=== PATIENT | female | born 1960 | race Caucasian/White ===

== ENCOUNTER 2017-06-27 09:45 | Day surgery (SDC) | payer OTHER ==
--- NOTE | 2017-06-20 14:11 | HISTORY AND PHYSICAL E ---
History and Physical NAME: TERESA MAC : 1960 AGE: 56Y ADMITTED: 06/27/2017 ROOM: CHIEF COMPLAINT: Patient presented for colon screening. REFERRING: Brendan Johnson SOCIAL HISTORY: Does not smoke. Does not drink. SURGERIES: 1. Appendectomy. 2. Tonsillectomy. 3. Cyst on her back. REVIEW OF SYSTEMS: HEENT: Eyeglasses. RESPIRATORY: Negative. CARDIAC: Denied chest pain. ENDOCRINE: Hypothyroid. GASTROINTESTINAL: Colon screening. ONCOLOGIC/HEMATOLOGIC: Negative. NEUROPSYCHIATRIC: History of depression. FAMILY HISTORY: Father is alive. Mom had diabetes. MEDICATIONS: 1. Fish oil. 2. [place]. PHYSICAL EXAMINATION: GENERAL: Pleasant, alert, oriented, in no acute distress. VITAL SIGNS: Weight 250, blood pressure 140/90, pulse 80, respirations 18, temp is 98. HEENT: Normal. NECK: Supple. LUNGS: Clear. ABDOMEN: Soft. NEUROLOGIC: Negative. CONCLUSION: Colon screening 06/27. DICTATING PHYSICIAN: DINA VELASCO M.D. [id number] PHY#: [id number] ID: [id number] JOB#: [id number] ACCT: [id number] cc:DINA VELASCO M.D. >
[~2017-06-27 09:45] MED LIST: EPINEPHRINE INJ 1 MG/10 ML DISP.SYRIN ONE; FLUMAZENIL INJ 0.5 MG/5 ML VIAL ONE; GLUCAGON,HUMAN RECOMB 1 MG INJ ONE; GLYCOPYRROLATE INJ 0.4 MG/2 ML VIAL ONE; LIDOCAINE 2% JELLY 30 ML TUBE ONE; NALOXONE HCL INJ/PF 0.4 MG/1 ML SDV ONE; ONDANSETRON HCL INJ/PF 4 MG/2 ML SDV ONE
[2017-06-27] MEDS: MIDAZOLAM 2 MG/2 ML INJ ONE ×3 (10:33→10:47)
[2017-06-27] MEDS: FENTANYL CITRATE INJ/PF 100 MCG/2 ML AMPUL ONE ×2 (10:35→10:42)
--- NOTE | 2017-06-27 12:05 | OPERATIVE REPORT E ---
Operative Report NAME: TERESA MAC : 1960 AGE: 56Y DATE OF SURGERY: 06/27/2017 ROOM: PREOPERATIVE DIAGNOSIS: Colon screening. POSTOPERATIVE DIAGNOSES: 1. External hemorrhoids, mild. 2. Sigmoid diverticulosis. 3. Very rare diverticulosis in the ascending colon. PROCEDURE: Colonoscopy to the cecum. SURGEON: DINA VELASCO M.D. ANESTHESIA: Versed 3 mg and Fentanyl 100 mcg. PROCEDURE: Rectal exam - External hemorrhoids, mild. Rectum, sigmoid shows occasional diverticulosis. Sigmoid and descending colon diverticulosis. Transverse colon, ascending colon, cecum normal. Occasional diverticulosis in the ascending colon. Cecum normal, ascending colon normal, transverse, descending, sigmoid all the way to the rectum. CONCLUSIONS: 1. No polyps, no malignancy. 2. Mild diverticulosis, sigmoid and descending colon. 3. Rare diverticulosis in the ascending colon. PLAN: Assurance. Consider follow-up colonoscopy after 10 years. DICTATING PHYSICIAN: DINA VELASCO M.D. [id number] PHY#: [id number] ID: [id number] JOB#: [id number] ACCT: [id number] cc:DINA VELASCO M.D. [facility]IAN'S >
--- NOTE | 2017-06-27 12:06 | DISCHARGE SUMMARY E ---
Discharge Summary NAME: TERESA MAC : 1960 AGE: 56Y ADMITTED: 06/27/2017 DISCHARGED: 06/27/2017 PROCEDURE: Colonoscopy. FINAL DIAGNOSIS: Sigmoid diverticulosis. Occasional diverticulosis, right colon. HISTORY: Patient is 56. Colon screening shows no polyp. Sigmoid diverticulosis. DISCHARGE PLAN: Soft diet. Continue all medication. Consider followup colonoscopy after 10 years. DICTATING PHYSICIAN: DINA VELASCO M.D. [id number] PHY#: [id number] ID: [id number] JOB#: [id number] ACCT: [id number] cc:DINA VELASCO M.D. >
[2017-06-27 12:12] VITALS: BP 116/76
== END 2017-06-27 12:05 | disposition home or self-care (01) ==
LOC: END 09:45
PROVIDERS: ATTEND Specialist
PROC: 0DJD8ZZ Inspection of Lower Intestinal Tract, Via Natural or Artificial Opening Endoscopic (ICD-10-PCS; principal; 2017-06-27 10:00)
DX: Z12.11 Encounter for screening for malignant neoplasm of colon (principal); K57.30 Diverticulosis of large intestine without perforation or abscess without bleeding; K44.9 Diaphragmatic hernia without obstruction or gangrene
CPT/HCPCS: 45378; J2250; J3010; J1610; J2405; J0171; J2310; J3490

== ENCOUNTER → 2018-03-15 | Outpatient (CLI) | payer OTHER ==
[2018-03-15 14:19] LABS: ABSOLUTE BASOPHILS # (AUTO) 0.1 10^3/uL (0.0-0.2); ABSOLUTE EOSINOPHILS # (AUTO) 0.1 10^3/uL (0.0-0.6); ABSOLUTE LYMPHOCYTES (AUTO) 2.6 10^3/uL (0.5-4.7); ABSOLUTE MONOCYTES (AUTO) 0.5 10^3/uL (0.1-1.4); ABSOLUTE NEUT (AUTO) 4.7 10^3/uL (1.7-8.2); BASOPHILS % (AUTO) 0.8 % (0-2); EOSINOPHILS % (AUTO) 1.5 % (0-6); HEMATOCRIT 42.6 % (36.0-47.0); HEMOGLOBIN 14.7 g/dL (12.0-15.5); MEAN CORPUSCULAR HEMOGLOBIN 29.6 pg (27.0-33.4); MEAN CORPUSCULAR HGB CONC 34.4 g/dL (32.0-36.0); MEAN CORPUSCULAR VOLUME 86 fl (80-97); MONOCYTES % (AUTO) 6.2 % (3-13); PLATELET COUNT 301 10^3/uL (150-450); RED BLOOD COUNT 4.95 10^6/uL (3.72-5.28); RED CELL DISTRIBUTION WIDTH 13.6 % (11.5-14.0); SEGMENTED NEUTROPHILS % (AUTO) 58.5 % (42-78); TOTAL CELLS COUNTED % (AUTO) 100 %
[2018-03-15 14:57] LABS: ERYTHROCYTE SEDIMENTATION RATE 22 mm/hr (0-30)
[2018-03-15 15:26] LABS: ALANINE AMINOTRANSFERASE 23 U/L (9-52); ALBUMIN 3.9 g/dL (3.5-5.0); ALKALINE PHOSPHATASE 75 U/L (38-126); ANION GAP 10 (5-19); ASPARTATE AMINO TRANSFERASE 17 U/L (14-36); BILIRUBIN,DIRECT 0.3 mg/dL (0.0-0.4); BILIRUBIN,TOTAL 0.5 mg/dL (0.2-1.3); BLOOD UREA NITROGEN 26 mg/dL (7-20); C-REACTIVE PROTEIN 14.5 mg/L (<10.0); CALCIUM 9.3 mg/dL (8.4-10.2); CARBON DIOXIDE 28 mmol/L (22-30); CHLORIDE 106 mmol/L (98-107); GLUCOSE 107 mg/dL (75-110); SODIUM 144.2 mmol/L (137-145); TOTAL PROTEIN 6.7 g/dL (6.3-8.2)
== END ==
LOC: OD 13:40
PROVIDERS: ATTEND Physician Assistant
DX: M25.50 Pain in unspecified joint (principal); R60.9 Edema, unspecified; M54.6 Pain in thoracic spine
CPT/HCPCS: 36415; 80053; 85025; 85652; 86038; 86140; 86430

== ENCOUNTER → 2018-03-25 | Outpatient (CLI) | payer OTHER ==
--- NOTE | 2018-03-26 08:48 | RADIOLOGY REPORT (SQ) ---
EXAM DESCRIPTION: MRI LUMBAR SPINE WITHOUT COMPLETED DATE/TIME: 03/25/2018 5:15 pm REASON FOR STUDY: RADICULOPATHY, LUMBAR REGION M54.16 RADICULOPATHY, LUMBAR REGION COMPARISON: None. TECHNIQUE: Sagittal and Axial imaging includes T1, T2, STIR and gradient echo sequences. Coronal T2/ HASTE imaging. LIMITATIONS: None. FINDINGS: VISUALIZED UPPER ABDOMEN: Limited evaluation. No acute or suspicious findings suggested. SEGMENTATION: There is a tiny disc space between the S1 and S2 levels. ALIGNMENT: Anatomic. VERTEBRAE: Intact. BONE MARROW: Normal. No marrow replacement or reactive changes. DISC SIGNAL: Decreased T2 weighted intervertebral disc signal at L5-S1 with mild disc space loss of h eight. POSTERIOR ELEMENTS: Generally intact. No pars defect evident. HARDWARE: None in the spine. CORD AND CONUS: Normal in size and signal intensity. Conus at the L1-2 level. SOFT TISSUES: No aortic aneurysm seen. No bulky retroperitoneal adenopathy or mass. No paraspinal mas s or fluid. T11-12: Bulky bilateral facet hypertrophy is present causing moderate bilateral foraminal narrowing left greater than right, and mild central canal stenosis. This is at the upper edge of the field of view. T12-L1: Unremarkable. L1-L2: Mild bilateral facet hypertrophy. No central or foraminal stenosis. L2-L3: Mild bilateral facet hypertrophy. No central or foraminal stenosis. L3-L4: Moderate bilateral facet hypertrophy. Mild diffuse posterior disc bulging. No central stenos is. No right foraminal narrowing. Mild lateral left foraminal narrowing without exiting L3 nerve ro ot impingement. L4-L5: Moderate bilateral facet hypertrophy and ligamentum flavum thickening. Minimal posterior disc bulging. No significant central or foraminal encroachment. L5-S1: Mild bilateral facet hypertrophy. Minimal posterior disc bulging. No central stenosis. No r ight foraminal narrowing. Mild left foraminal narrowing without exiting L5 nerve root impingement SACRUM: Visualized upper sacrum intact. OTHER: No other significant findings. IMPRESSION: Diffuse degenerative changes as above. TECHNICAL DOCUMENTATION: JOB ID: [id number] [employer]- All Rights Reserved Reading location - IP/workstation name: [email or web address]
== END ==
LOC: RAD 16:28
PROVIDERS: ATTEND Physician Assistant
DX: M54.16 Radiculopathy, lumbar region (principal)
CPT/HCPCS: 72148

== ENCOUNTER → 2018-04-22 | Outpatient (CLI) | payer OTHER ==
--- NOTE | 2018-04-22 15:37 | RADIOLOGY REPORT (SQ) ---
EXAM DESCRIPTION: NM WHOLE BODY BONE SCAN COMPLETED DATE/TIME: 04/22/2018 12:50 pm REASON FOR STUDY: OTHER INTERVERTEBRAL DISC DEGENERATION, LUMBAR REGION M51.36 OTHER INTERVERTEBRAL DISC DEGENERATION, LUMBAR REGION COMPARISON: MRI lumbar spine dated 03/25/2018. X-ray of the lumbar spine dated 03/13/2018. RADIONUCLIDE AND DOSE: 19.07 millicuries Tc99m HDP. The route of agent administration: Intravenous. ADDITIONAL DRUGS AND DOSES: None. TECHNIQUE: Routine delayed images at 3 hour post radionuclide injection acquired of the bony skeleto n including anterior and posterior whole-body projections and additional focused images as needed. LIMITATIONS: None. FINDINGS: BONES: Normal visualization without areas of photopenia or increased bony uptake of radiop harmaceutical. KIDNEYS: Symmetric excretion without obstruction. OTHER: No other significant finding. IMPRESSION: NORMAL BONE SCAN. COMMENT: Quality measure 147: Current bone scan is compared with any available plain radiographs, p rior bone scans, and CT/MRI. TECHNICAL DOCUMENTATION: JOB ID: [id number] [employer]- All Rights Reserved Reading location - IP/workstation name: [email or web address]
== END ==
LOC: RAD 08:30
PROVIDERS: ATTEND Physician Assistant
DX: M51.36 Other intervertebral disc degeneration, lumbar region (principal); M70.61 Trochanteric bursitis, right hip; M70.62 Trochanteric bursitis, left hip
CPT/HCPCS: 78306; A9561

== ENCOUNTER → 2019-05-05 | Outpatient (CLI) | payer OTHER ==
--- NOTE | 2019-05-05 15:57 | WOMENS IMAGING REPORT ---
EXAM DESCRIPTION: 3D SCREENING MAMMO BILAT COMPLETED DATE/TIME: 05/05/2019 3:35 pm REASON FOR STUDY: Z12.31 ENCOUNTER FOR SCREENING MAMMOGRAM FOR MALIGNANT NEOPLASM OF BREAST Z12.31 ENCNTR SCREEN MAMMOGRAM FOR MALIGNANT NEOPLASM OF MEGAN COMPARISON: 09/05/2016. EXAM PARAMETERS: Views: Standard craniocaudal and mediolateral oblique views of each breast recorded using digital acquisition and breast tomosynthesis. Read with the assistance of CAD. .[facility] - R2 [employer] Version 9.2 LIMITATIONS: None. FINDINGS: No suspicious masses, suspicious calcifications or architectural distortion. No areas of c oncern. IMPRESSION: NEGATIVE MAMMOGRAM. BIRADS 1. BREAST DENSITY: a. The breasts are almost entirely fatty. BIRAD: ASSESSMENT: 1 NEGATIVE RECOMMENDATION: ROUTINE SCREENING COMMENT: The patient has been notified of the results by letter per MQSA requirements. Additional no tification policies are in place for contacting patient with suspicious or incomplete findings. Quality ID #[id number]: The [employer] recommends an annual screening mammogram for women aged 40 years or over. This facility utilizes a reminder system to ensure that all patients receive reminder letters, and/or direct phone calls for appointments. This includes reminders for routine scr eening mammograms, diagnostic mammograms, or other Breast Imaging Interventions when appropriate. Th is patient will be placed in the appropriate reminder system. TECHNICAL DOCUMENTATION: FINDING NUMBER: (1) ASSESSMENT: (1) JOB ID: [id number] [employer]- All Rights Reserved Reading location - IP/workstation name: [email or web address]
== END ==
LOC: WI 14:35
PROVIDERS: ATTEND Internal Medicine
DX: Z12.31 Encounter for screening mammogram for malignant neoplasm of breast (principal)
CPT/HCPCS: 77063; 77067